=== PATIENT | female | born 1985 | race Caucasian/White ===

== ENCOUNTER 2024-09-04 12:44 | Outpatient (CLI) | payer OTHER | END 2024-09-04 23:59 | disposition home or self-care (01) | LOC: RAD 12:44 | PROVIDERS: ATTEND Student in an Organized Health Care Education/Training Program | DX: M48.02 Spinal stenosis, cervical region (principal); M43.12 Spondylolisthesis, cervical region; M54.2 Cervicalgia | CPT/HCPCS: 72052 ==